=== PATIENT | female | born 1975 | race Caucasian/White ===

== ENCOUNTER 2022-11-17 09:06 | Outpatient (OUT) | payer BC, SELFPAY ==
[2022-11-17 09:41] LABS: Basophils Percent Auto 0.7 % (0.2-2.0); Eosinophils Absolute Auto 0.2 10^3/uL (0.0-0.7); Hematocrit 37.5 % (36.0-48.0); Hemoglobin 12.9 g/dL (12.0-16.0); Immature Granulocytes Abs Auto 0.01 10^3/uL (0.00-0.03); Immature Granulocytes Pct Auto 0.2 % (0.0-0.5); Mean Corpuscular HGB Conc 34.4 g/dL (29.9-35.2); Mean Corpuscular Hemoglobin 33.2 pg (26.7-34.0); Mean Corpuscular Volume 96.4 fL (81.0-99.0); Mean Platelet Volume 10.6 fL (9.5-13.5); Monocytes Absolute Auto 0.4 10^3/uL (0.3-0.8); Monocytes Percent Auto 10.6 % (1.7-12.0); Neutrophils Absolute Auto 2.4 10^3/uL (1.4-6.5); Neutrophils Percent Auto 60.5 % (43.0-75.0); Platelet Count 106 10^3/uL (150-450); Red Blood Count 3.89 10^6/uL (4.20-5.40); Red Cell Distribution Width 12.8 % (11.0-15.0)
[2022-11-17 10:00] LABS: Estimated Average Glucose 292 mg/dL; Glycohemoglobin A1C 11.8 % (4.5-6.2)
[2022-11-17 10:08] LABS: Chol HDL Ratio 3.2; Cholesterol 146 mg/dL (<=200); HDL Cholesterol 46 mg/dL (40-60); LDL Cholesterol Calculated 72.8 mg/dL; Triglycerides 136 mg/dL (<=150); VLDL CHOLESTEROL 27.2 mg/dL
== END 2022-11-17 09:07 | disposition home or self-care (01) ==
LOC: LAB 09:13
PROVIDERS: PCP Family Medicine; Visit Provider Family Medicine
DX: I10 Essential (primary) hypertension (principal); E11.9 Type 2 diabetes mellitus without complications; E03.9 Hypothyroidism, unspecified
CPT/HCPCS: 36415; 80061; 83036; 84443; 85025